=== PATIENT | female | born 1985 | race Caucasian/White ===

== ENCOUNTER 2018-06-13 19:34 | Emergency (ER) | payer OTHER ==
[~2018-06-13] VITALS: Ht 157.5 cm; Wt 61.7 kg
--- NOTE | 2018-06-13 20:07 | NUR ---
PT BIB [facility] WITH A C/O LOW BP. PT WAS PRESYNCOPAL PER EMS. PT'S PALOR IS PALE AND BP IS 100/58. PT IS ON THE MONITOR AND CONTINUOUS PULSE OX. PT'S FAMILY IS AT THE BEDSIDE.
--- NOTE | 2018-06-13 20:13 | NUR ---
PT STATED THAT SHE "PASSED OUT TWICE". PT STATED THAT SHE HIT THE BACK OF HER HEAD AND THAT SHE IS NOT NAUSEATED AT THIS TIME. 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 PT REC'D 500MG NS AND 4MG ZOFRAN IN THE FIELD. PT'S MOUTH AND LIPS APPEAR DRY. DR. Lentz IS AT THE BEDSIDE EVALUATING THE PT. PT'S PARENTS STATED THAT THE PT HAS BIPOLAR AND HAS RECENTLY MOVED BACK FROM [place]. PER PT'S PARENTS, THE PT HAS BEEN HAVING MOOD ISSUES AND DIFFICULTY WITH FRIENDS. PT STATED THAT SHE ATE A SMALL BREAKFAST AND DID NOT EAT SINCE. PT ALSO SAT OUT IN THE SUN DRINKING COFFEE AND ONLY HAD ONE GLASS OF WATER.
[2018-06-13] MEDS ORDERED: IV NS 0.9% 1,000 ML BAG IV ONE ×2 (20:30)
--- NOTE | 2018-06-13 20:40 | NUR ---
PT IS STILL UNABLE TO GIVE A URINE SAMPLE AT THIS TIME.
--- NOTE | 2018-06-13 20:40 | NUR ---
OSCARTOMIST IS AT THE BEDSIDE FOR BLOOD DRAW.
[2018-06-13 20:45] LABS: BASOPHILS % (AUTO) 0.2 % (0.0-2.0); EOSINOPHILS % (AUTO) 0.8 % (0.0-6.0); HEMATOCRIT 37 % (33-45); HEMOGLOBIN 12.7 g/dL (11.5-14.8); LYMPHOCYTES # (AUTO) 1.5 /CMM (0.8-4.8); LYMPHOCYTES % (AUTO) 20.9 % (20.0-44.0); MEAN CORPUSCULAR HEMOGLOBIN 32 PG (26.0-33.0); MEAN CORPUSCULAR HGB CONC 34 g/dl (31.0-36.0); MEAN CORPUSCULAR VOLUME 94 fL (82-100); MONOCYTES # (AUTO) 0.6 /CMM (0.1-1.30); NEUTROPHILS # (AUTO) 5.2 /CMM (1.8-8.9); NEUTROPHILS % (AUTO) 70.1 % (43.0-81.0); PLATELET COUNT (AUTO) 261 /CMM (150-450); RDW COEFFICIENT OF VARIATION 13.9 (11.5-15.0); RED BLOOD CELL COUNT(AUTO) 3.92 MIL/uL (4.0-5.2); WHITE BLOOD COUNT (AUTO) 7.4 K/uL (4.3-11.0)
[2018-06-13 21:01] LABS: ALBUMIN 3.7 g/dL (3.4-5.0); BILIRUBIN,DIRECT 0.1 mg/dL (0.0-0.2); BILIRUBIN,TOTAL 0.4 mg/dL (0.2-1.0); CREATININE 1.4 mg/dL (0.6-1.3); POTASSIUM 3.9 mmol/L (3.5-5.1)
--- NOTE | 2018-06-13 21:11 | NUR ---
PT LEFT FOR CT VIA GURNEY.
--- NOTE | 2018-06-13 21:15 | NUR ---
PT RETURNED FROM CT AND AMBULATED TO THE BATHROOM WITH A STEADY GAIT. PT STATED THAT SHE FELT BETTER AND WANTED TO GO HOME. PT WAS RECONNECTED TO THE MONITOR AND CONTINUOUS PUSLE OX.
--- NOTE | 2018-06-13 21:49 | NUR ---
DR Lentz IS AT THE BEDSIDE.
[2018-06-13] MEDS ORDERED: TDAP [DIPH/PERTUSSIS/TET] 0.5 ML VIAL IM ONE ×2 (22:00→22:08)
[2018-06-13 22:18] VITALS: BP 99/58
== END 2018-06-13 22:19 | disposition home or self-care (01) ==
LOC: ER 19:35
DX: S91.312A Laceration without foreign body, left foot, initial encounter (principal); E86.0 Dehydration; R55 Syncope and collapse; F31.9 Bipolar disorder, unspecified; W18.09XA Striking against other object with subsequent fall, initial encounter; Y93.89 Activity, other specified; Y92.009 Unspecified place in unspecified non-institutional (private) residence as the place of occurrence of the external cause; Y99.8 Other external cause status
CPT/HCPCS: 36415; 70450-TC; 80048-TC; 80076-TC; 83690-TC; 85025-TC; 90715; A4606; A6402; J7030; Z7610